=== PATIENT | male | born 1985 | race Caucasian/White ===

== ENCOUNTER 2016-08-21 16:35 | Emergency (ER) | payer MEDICAID ==
[2016-08-21 16:45] VITALS: RESP 16; O2SAT 96
--- NOTE | 2016-08-21 17:27 | EDPHY ---
H & P Time Seen by Provider: 08/21/16 17:08 HPI/ROS: CHIEF COMPLAINT: Possible abscess left biceps HISTORY OF PRESENT ILLNESS: 31-year-old immunocompetent male with up-to-date tetanus, history of IV heroin use, last used 10 days ago and missed in his left bicep. He is complaining of progressive erythema and swelling to his left biceps. he was recently started on Suboxone therapy and his physician recommended come to the ER for evaluation of this abscess. He denies: Fever, chills, chest pain, dyspnea, back pain REVIEW OF SYSTEMS: A ten point review of systems was performed and is negative with the exception of the items mentioned in the HPI PAST MEDICAL & SURGICAL HISTORY: No pertinent medical or surgical history SOCIAL HISTORY: History of IV heroin use PHYSICAL EXAM (Prior to examination, patient consented to physical exam, hands were washed and my usual and customary physical exam procedures followed) 1) GENERAL: Well-developed, well-nourished, alert and oriented. Appears nontoxic . 2) HEAD: Normocephalic, atraumatic 3) HEENT: Sclera anicteric. 4) NECK: Full range of motion, no meningeal signs. 5) LUNGS: Clear auscultation bilaterally, no wheezes, no rhonchi, no retractions. 6) HEART: Regular rate and rhythm, no murmur, no heave, no gallop. 7) ABDOMEN: No guarding, no rebound, no focal tenderness, 8) MUSCULOSKELETAL: left upper extremity: Left anterior biceps there are 2 discrete abscesses each measuring 2.5 cm in close proximity to each other. There is no crepitus. There is no lymphangitic streaking. There is no axillary adenopathy. He has full range of motion of the shoulder and elbow 9) BACK: no visual or palpable abnormality. 10) SKIN: No rash, no petechiae. 11) Psychiatric: Patient is oriented X 3, there is no agitation. DIFFERENTIAL DIAGNOSIS: in no particular order including but not limited to abscess, cellulitis, necrotizing fasciitis, DVT Smoking Status: Heavy smoker Constitutional: Initial Vital Signs Temperature (C) 36.5 C 08/21/16 16:42 Heart Rate 103 H 08/21/16 16:42 Respiratory Rate 16 08/21/16 16:42 Blood Pressure 133/85 H 08/21/16 16:42 O2 Sat (%) 96 08/21/16 16:42 O2 Delivery Mode Room Air Allergies/Adverse Reactions: No Known Allergies Allergy (Verified 01/24/16 16:45) Home Medications: Medication Instructions Recorded Cephalexin [Keflex] 500 mg PO QID 10 Days 08/21/16 Sulfamethox/Tmp 800/160 mg 1 tab PO BID@1000,2200 10 Days 08/21/16 [Bactrim Ds] MDM/Departure - MDM Procedures: Procedure: Abscess drainage. The patient's to discrete abscesses were located on the left bicep . I obtained verbal consent from the patient to drain the abscess who was informed about the possibility of bleeding and pain. The area was aspirated with an 18 gauge needle sent to laboratory for culture and sensitivity. Each abscess was incised with a scalpel and a moderate amount of purulent drainage was expressed. I irrigated the wound . The patient tolerated the procedure well. The procedure was performed by myself. ED Course/Re-evaluation: Doubt necrotizing fasciitis. Doubt cellulitis. He has 2 discrete abscesses which were incised and drained he was started on oral antibiotics. His tetanus is up-to-date. Recommend he follow up with his primary care provider in 2 days for recheck. Usual and customary wound precautions and instructions provided. - Depart Disposition: Home, Routine, Self-Care Clinical Impression: Abscess of left arm Condition: Good Instructions: Abscess (ED) Additional Instructions: Return to the ER if you develop redness, swelling, discharge, warmth to the wound, red streaks going up your arm, or any other symptoms that concern you. Prescriptions: Cephalexin [Keflex] 500 mg PO QID 10 Days Sulfamethox/Tmp 800/160 mg [Bactrim Ds] 1 tab PO BID@1000,2200 10 Days Referrals: Follow-up, with your doctor in 2 days [Other] - As per Instructions
[2016-08-21 18:03] VITALS: BP 129/84; PULSE 88; TEMP 98.6
== END 2016-08-21 18:00 | disposition home or self-care (01) ==
PROC: 0H9CXZZ Drainage of Left Upper Arm Skin, External Approach (ICD-10-PCS; principal; 2016-08-21)
DX: L02.414 Cutaneous abscess of left upper limb (principal); F17.200 Nicotine dependence, unspecified, uncomplicated

== ENCOUNTER 2017-03-22 17:10 | Emergency (ER) | payer MEDICAID ==
[2017-03-22 17:18] VITALS: RESP 18; TEMP 99
--- NOTE | 2017-03-22 17:40 | CPEKG ---
Heart Rate: 71 RR Interval: 845 P-R Interval: 152 QRSD Interval: 80 QT Interval: 392 QTC Interval: 426 P [place]: 140 QRS [place]: -22 T Wave [place]: 43 EKG Severity - OTHERWISE NORMAL ECG - EKG Impression: SINUS OR ECTOPIC ATRIAL RHYTHM EKG Impression: BORDERLINE LEFT AXIS DEVIATION Electronically Signed By: David Osborn 22-Mar-2017 17:49:10
[2017-03-22] MEDS ORDERED: NS 1,000 ML IV ONE (17:44)
[2017-03-22] MEDS ORDERED: ASPIRIN 81 MG CHEWABLE TAB PO ONE (17:44)
[2017-03-22] MEDS ORDERED: MAG HYDROX/AL HYDROX/SIMETH 30 ML UDCUP PO ONE (17:45)
[2017-03-22] MEDS ORDERED: HYOSCYAMINE SULFATE 0.125 MG TAB PO ONE (17:45)
[2017-03-22] MEDS ORDERED: LIDOCAINE 2% VISCOUS 15 ML UDCUP PO ONE (17:45)
--- NOTE | 2017-03-22 17:48 | EDPHY ---
H & P Stated Complaint: chest pain for a few days Time Seen by Provider: 03/22/17 17:37 HPI/ROS: CHIEF COMPLAINT: Chest pain HISTORY OF PRESENT ILLNESS: Patient is a 31-year-old IV drug abuser of heroin who comes to the emergency department complaining of chest pain for the last 48 hr. He also has pleuritic pain but no shortness of breath. No back pain. No diaphoresis. No nausea vomiting. No fevers. No rashes. REVIEW OF SYSTEMS: Constitutional: denies: chills, fever, recent illness, recent injury EENTM: denies: blurred vision, double vision, nose congestion Respiratory: denies: cough, shortness of breath Cardiac: See HPI Gastrointestinal/Abdominal: denies: abdominal pain, diarrhea, nausea, vomiting, blood streaked stools Genitourinary: denies: dysuria, frequency, hematuria, pain Musculoskeletal: denies: joint pain, muscle pain Skin: denies: lesions, rash, jaundice, bruising Neurological: denies: headache, numbness, paresthesia, tingling, dizziness, weakness Hematologic/Lymphatic: denies: blood clots, easy bleeding, easy bruising Immunologic/allergic: denies: HIV/AIDS, transplant EXAM: GENERAL: Well-appearing, well-nourished and in no acute distress. HEAD: Atraumatic, normocephalic. EYES: Pupils equal round and reactive to light, extraocular movements intact, sclera anicteric, conjunctiva are normal. ENT: TMs normal, nares patent, oropharynx clear without exudates. Moist mucous membranes. NECK: Normal range of motion, supple without lymphadenopathy or JVD. LUNGS: Breath sounds clear to auscultation bilaterally and equal. No wheezes rales or rhonchi. HEART: Regular rate and rhythm without murmurs, rubs or gallops. ABDOMEN: Soft, nontender, normoactive bowel sounds. No guarding, no rebound. No masses appreciated. BACK: No CVA tenderness, no spinal tenderness, step-offs or deformities EXTREMITIES: Normal range of motion, no pitting or edema. No clubbing or cyanosis. NEUROLOGICAL: Cranial nerves II through XII grossly intact. Normal speech, normal gait. 5/5 strength, normal movement in all extremities, normal sensation PSYCH: Normal mood, normal affect. SKIN: Warm, dry, normal turgor, no visible rashes or lesions. Source: Patient Exam Limitations: No limitations - Personal History Current Tetanus/Diphtheria Vaccine: Yes Current Tetanus Diphtheria and Acellular Pertussis (TDAP): Yes Tetanus Vaccine Date: < 10 years - Medical/Surgical History Hx Asthma: No Hx Chronic Respiratory Disease: No Hx Diabetes: No Hx Cardiac Disease: No Hx Renal Disease: No Hx Cirrhosis: No Hx Alcoholism: No Hx HIV/AIDS: No Hx Splenectomy or Spleen Trauma: No Other PMH: TBI 2007, broken pelvis, back 2007, seizures, - Family History Significant Family History: No pertinent family hx - Social History Smoking Status: Heavy smoker Alcohol Use: Occasionally Drug Use: Heroin Constitutional: Initial Vital Signs Temperature (C) 37.2 C 03/22/17 17:15 Heart Rate 78 03/22/17 17:15 Respiratory Rate 18 03/22/17 17:15 Blood Pressure 152/144 H 03/22/17 17:15 O2 Sat (%) 93 03/22/17 17:15 O2 Delivery Mode Room Air Allergies/Adverse Reactions: No Known Allergies Allergy (Verified 03/22/17 17:15) Home Medications: Medication Instructions Recorded Pantoprazole Sodium [Protonix] 40 mg PO DAILY #30 tab 03/22/17 Medical Decision Making - Diagnostics EKG Interpretation: An EKG obtained and was read and documented in trace view. Please see trace view for full reading and report. Sinus rhythm, no acute ischemic changes Imaging Results: Imaging Impressions Chest X-Ray 03/22/17 17:45 Impression: Normal chest x-ray. Chest/Thorax CTA 03/22/17 18:25 Impression: 1. No evidence of pulmonary embolus using CT protocol. 2. Normal CT chest. 3. 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 Findings discussed with David Osborn M.D. at 19:48 hour, 03/22/2017. Imaging: Discussed imaging studies w/ scallop cutter Radiologist ED Course/Re-evaluation: Patient does not have any murmur. He is afebrile. We discussed the lab and CT results. He is currently asymptomatic and eager to go home. I encouraged Protonix daily. He does feel much better after GI cocktail. We discussed follow-up and indications for returning. Differential Diagnosis: Partial list of the Differential diagnosis considered include but were not limited to; peptic ulcer disease, endocarditis, P and although unlikely based on the history and physical exam, I also considered acute coronary disease, dissection, aneurysm, abscess. I discussed these differential diagnoses and the plan with the patient as well as the usual and expected course. The patient understands that the diagnosis is provisional and that in medicine we are not always correct and that further workup is often warranted. Usual and customary warnings were given. All of the patient's questions were answered. The patient was instructed to return to the emergency department should the symptoms at all worsen or return, otherwise to followup with the physician as we discussed. - Data Points Laboratory Results: Laboratory Results 03/22/17 17:35 03/22/17 17:35 03/22/17 03/22/17 03/22/17 17:35 17:35 17:35 WBC 9.21 10^3/uL 10^3/uL (3.80-9.50) RBC 4.85 10^6/uL 10^6/uL (4.40-6.38) Hgb 14.3 g/dL g/dL (13.7-17.5) Hct 40.7 % % (40.0-51.0) MCV 83.9 fL fL (81.5-99.8) MCH 29.5 pg pg (27.9-34.1) MCHC 35.1 g/dL g/dL (32.4-36.7) RDW 13.3 % % (11.5-15.2) Plt Count 250 10^3/uL 10^3/uL (150-400) MPV 9.1 fL fL (8.7-11.7) Neut % (Auto) 73.5 % % (39.3-74.2) Lymph % (Auto) 18.1 % % (15.0-45.0) [place] % (Auto) 7.5 % % (4.5-13.0) Eos % (Auto) 0.3 % L % (0.6-7.6) Baso % (Auto) 0.3 % % (0.3-1.7) Nucleat RBC Rel Count 0.0 % % (0.0-0.2) Absolute Neuts (auto) 6.76 10^3/uL H 10^3/uL (1.70-6.50) Absolute Lymphs (auto) 1.67 10^3/uL 10^3/uL (1.00-3.00) Absolute Monos (auto) 0.69 10^3/uL 10^3/uL (0.30-0.80) Absolute Eos (auto) 0.03 10^3/uL 10^3/uL (0.03-0.40) Absolute Basos (auto) 0.03 10^3/uL 10^3/uL (0.02-0.10) Absolute Nucleated RBC 0.00 10^3/uL 10^3/uL (0-0.01) Immature Gran % 0.3 % % (0.0-1.1) Immature Gran # 0.03 10^3/uL 10^3/uL (0.00-0.10) D-Dimer 1.06 ug/mLFEU H ug/mLFEU (0.00-0.50) Sodium 136 mEq/L mEq/L (135-145) Potassium 4.3 mEq/L mEq/L (3.5-5.2) Chloride 99 mEq/L mEq/L (97-110) Carbon Dioxide 26 mEq/l mEq/l (22-31) Anion Gap 11 mEq/L mEq/L (8-16) BUN 10 mg/dL mg/dL (7-23) Creatinine 0.9 mg/dL mg/dL (0.7-1.3) Estimated GFR > 60 Glucose 87 mg/dL mg/dL (70-100) Calcium 9.3 mg/dL mg/dL (8.5-10.4) Total Bilirubin 1.1 mg/dL mg/dL (0.1-1.4) Conjugated Bilirubin 0.3 mg/dL mg/dL (0.0-0.5) Unconjugated Bilirubin 0.8 mg/dL mg/dL (0.0-1.1) AST 51 IU/L IU/L (17-59) ALT 83 IU/L H IU/L (21-72) Alkaline Phosphatase 85 IU/L IU/L (38-126) Troponin I < 0.012 ng/mL ng/mL (0.000-0.034) Total Protein 7.4 g/dL g/dL (6.3-8.2) Albumin 4.2 g/dL g/dL (3.5-5.0) Lipase 16 IU/L L IU/L (23-300) Medications Given: Discontinued Medications Al Hydroxide/Mg Hydroxide (Maalox Susp) 30 ml PO ONCE ONE Stop: 03/22/17 17:46 Last Admin: 03/22/17 18:09 Dose: 30 ml Aspirin (Aspirin) 324 mg PO EDNOW ONE Stop: 03/22/17 17:45 Last Admin: 03/22/17 18:09 Dose: 324 mg Hyoscyamine Sulfate (Levsin, Hyomax-Sl) 0.25 mg PO ONCE ONE Stop: 03/22/17 17:46 Last Admin: 03/22/17 18:09 Dose: 0.25 mg Sodium Chloride (Ns) 1,000 mls @ 0 mls/hr IV EDNOW ONE; Wide Open PRN Reason: Protocol Stop: 03/22/17 17:45 Last Admin: 03/22/17 18:08 Dose: 1,000 mls Lidocaine (Lidocaine 2% Viscous) 15 ml PO ONCE ONE Stop: 03/22/17 17:46 Last Admin: 03/22/17 18:09 Dose: 15 ml Departure - Departure Disposition: Home, Routine, Self-Care Clinical Impression: Chest pain Qualifiers: Chest pain type: unspecified Qualified Code(s): R07.9 - Chest pain, unspecified Condition: Fair Instructions: Pantoprazole (By mouth), Chest Pain (ED) Additional Instructions: We do have a small aneurysm of your left subclavian artery. We recommend that you follow up with your primary for repeat imaging in 6 months. Referrals: NONE *PRIMARY CARE P,. [Primary Care Provider] - As per Instructions [facility],. [Clinic] - As per Instructions Prescriptions: Pantoprazole Sodium [Protonix] 40 mg PO DAILY #30 tab
[2017-03-22 17:52] LABS: PLATELET COUNT 250 10^3/uL (150-400)
[2017-03-22] MEDS ORDERED: IOPAMIDOL (ISOVUE 370) 100 ML BTL IV ONE (18:54)
[2017-03-22 20:24] VITALS: BP 106/72; PULSE 69; O2SAT 98
== END 2017-03-22 20:24 | disposition home or self-care (01) ==
DX: R07.9 Chest pain, unspecified (principal); F17.200 Nicotine dependence, unspecified, uncomplicated; E86.9 Volume depletion, unspecified
CPT/HCPCS: Q9967

== ENCOUNTER 2017-08-20 19:36 | Emergency (ER) | payer MEDICAID ==
--- NOTE | 2017-08-20 19:54 | EDPHY ---
General Time Seen by Provider: 08/20/17 19:49 Narrative: CHIEF COMPLAINT: medical detox HISTORY OF PRESENT ILLNESS: Patient presents with complaints wanting medical detoxification for heroin abuse. He says he has been using heroin 1 to 2 times a day for many years. He is going through "a lot of things a lot of stressors in my life,"and he would like to detox. He denies any thoughts of self-harm or harm towards others. He is solely here to ask for assistance for detoxing from heroin. He says he has gone through the past and it was described as miserable. He has no chest pain or shortness of breath. He last used earlier today around 3:00 p.m.. He is requesting Librium and "some kind of meds"to help him through this. He reports that he has arranged to check into [facility] tomorrow for treatment. REVIEW OF SYSTEMS: Ten systems reviewed and are negative unless otherwise noted in the HPI PCP: [facility] SPECIALISTS: [facility] PAST MEDICAL HISTORY: Heroin abuse PAST SURGICAL HISTORY: No recent surgeries SOCIAL HISTORY: Daily tobacco, alcohol and heroin abuse. Denies any benzodiazepine use recreational or prescription FAMILY HISTORY: Noncontributory EXAMINATION General Appearance: Alert, no distress. Well-developed well-nourished. Fidgeting Head: normocephalic, atraumatic Eyes: Pupils equal and round, no conjunctival pallor or injection ENT, Mouth: Mucous membranes moist Neck: Normal inspection, supple, non-tender Respiratory: Lungs are clear to auscultation Cardiovascular: Regular rate and rhythm Neurological: GCS 15. A&O, nonfocal, normal gait. Strength is symmetric. No tremor. No pronator drift. Skin: Warm and dry, no rash. Multiple areas of superficial excoriation without any secondary infection. Extremities: Nontender, no pedal edema Psychiatric: Anxious and fidgeting. No suicidal ideation. No homicidal ideation. DIFFERENTIAL DIAGNOSES: Including but not limited to heroin abuse, polysubstance abuse MDM: 8:00 p.m. Heroin abuse wanting detox and requesting Librium and [facility] assistance. The patient says he wants to go to the [facility] tomorrow however not tonight. Vital signs are within normal limits. I do not appreciate any evidence of active illness, no dizzy complain of any. He has no thoughts of self-harm or harm towards others. He denies any benzodiazepine use recently or for recreation. 8:40 p.m. Sukumar AMBROSE has discussed the case with the the personnel [facility]. They have no record of the patient contacting them to check in tomorrow. Furthermore do not trust the patient sending him home with [facility] at this time given his polysubstance abuse. I will order 1 dose of clonidine here and requested he return here tomorrow should he wish to proceed to the [facility] for further detox. He is comfortable with this plan and we discharged home stable condition. SUPERVISION: This patient was independently evaluated without direct involvement of or examination by the attending physician. - History Smoking Status: Heavy smoker - Objective Vital Signs: Initial Vital Signs Temperature (C) 98.2 F 08/20/17 19:41 Heart Rate 98 08/20/17 19:41 Respiratory Rate 18 08/20/17 19:41 Blood Pressure 130/84 H 08/20/17 19:41 O2 Sat (%) 94 08/20/17 19:41 O2 Delivery Mode Room Air Allergies/Adverse Reactions: No Known Allergies Allergy (Verified 08/20/17 19:41) Home Medications: Medication Instructions Recorded Pantoprazole Sodium [Protonix] 40 mg PO DAILY #30 tab 03/22/17 Laboratory Results: 08/20/17 20:15 Urine Opiates Screen NON-NEGATIVE H (NEGATIVE) Urine Barbiturates NEGATIVE (NEGATIVE) Ur Phencyclidine Scrn NEGATIVE (NEGATIVE) Ur Amphetamine Screen NEGATIVE (NEGATIVE) U Benzodiazepines Scrn NEGATIVE (NEGATIVE) Urine Cocaine Screen NON-NEGATIVE H (NEGATIVE) U Marijuana (THC) Screen NON-NEGATIVE H (NEGATIVE) Departure - Departure Disposition: Home, Routine, Self-Care Clinical Impression: Heroin abuse, Polysubstance (excluding opioids) dependence Condition: Good Instructions: Clonidine (By mouth), Cocaine Abuse (ED), Narcotic Abuse (ED) Additional Instructions: 1. Report to the [facility] when you would like to proceed with detoxication 2. Return here for any further complaints Referrals: Clemencia Reed MD [Medical Doctor] - As per Instructions [facility] Detox 24 Hours [Outside] - As per Instructions
[2017-08-20 20:51] VITALS: BP 131/74
== END 2017-08-20 20:51 | disposition home or self-care (01) ==
DX: F11.10 Opioid abuse, uncomplicated (principal); F19.10 Other psychoactive substance abuse, uncomplicated; F17.200 Nicotine dependence, unspecified, uncomplicated
CPT/HCPCS: 80305

== ENCOUNTER 2017-08-23 21:25 | Emergency (ER) | payer MEDICAID ==
--- NOTE | 2017-08-23 22:02 | EDPHY ---
H & P Stated Complaint: HEROIN AND COCAINE WITHDRAWAL, /LAST USED YEST AM/HX OF SZ - Personal History Current Tetanus Diphtheria and Acellular Pertussis (TDAP): Yes Tetanus Vaccine Date: < 10 years - Medical/Surgical History Hx Asthma: No Hx Chronic Respiratory Disease: No Hx Diabetes: No Hx Cardiac Disease: No Hx Renal Disease: No Hx Cirrhosis: No Hx Alcoholism: No Hx HIV/AIDS: No Hx Splenectomy or Spleen Trauma: No Other PMH: TBI 2007, broken pelvis, back 2007, seizures, "pins in wrist", HEROIN USE, COCAINE USE - Social History Smoking Status: Heavy smoker Time Seen by Provider: 08/23/17 22:02 Constitutional: Initial Vital Signs Temperature (C) 36.6 C 08/23/17 21:31 Heart Rate 105 H 08/23/17 21:31 Respiratory Rate 16 08/23/17 21:31 Blood Pressure 125/94 H 08/23/17 21:31 O2 Sat (%) 98 08/23/17 21:31 O2 Delivery Mode Room Air Allergies/Adverse Reactions: No Known Allergies Allergy (Verified 08/20/17 19:41) Home Medications: Medication Instructions Recorded NK [No Known Home Meds] 08/23/17 Medical Decision Making ED Course/Re-evaluation: CHIEF COMPLAINT: Seeking medical withdrawal HISTORY OF PRESENT ILLNESS: The patient is a 32 y/o male with a history of seizures seeking medical withdrawal from heroin and cocaine. He has a history of seizures with withdrawal, lack of sleep, and stress. He last used yesterday morning and sought medical withdrawal yesterday. Today he presented to the [facility] and informed them he felt he may have a seizure. They administered librium but he continued to feel like he may have a seizure. He presented to the ED for help finding placement in a medical withdrawal program that could better suit his seizure history. REVIEW OF SYSTEMS: A 10 point review of systems was performed and is negative with the exception of the elements mentioned in the history of present illness. PHYSICAL EXAM: HR, BP, O2 Sat, RR. Temp noted General Appearance: Alert, well hydrated, appropriate, and non-toxic appearing. Head: Atraumatic without scalp tenderness or obvious injury Eyes: Pupils equal, round, reactive to light and accommodation, EOMI, no trauma , no injection. Ears: Clear bilaterally, no perforation, normal landmarks Nose: Atraumatic, no rhinorrhea, clear. Throat: There is no erythema or exudates, no lesions, normal tonsils, mucus membranes moist. Neck: Supple, nontender, no lymphadenopathy. Respiratory: No retractions, no distress, no wheezes, and no accessory muscle use. Cardiovascular: Regular rate and rhythm, no murmurs, rubs, or gallops. Gastrointestinal: Abdomen is soft, nontender, non-distended, no masses, no rebound, no guarding, no peritoneal signs. Musculoskeletal: Normal active ROM of all extremities, atraumatic. Neurological: Alert, appropriate, and interactive. The patient has normal DTRs and non-focal cranial nerves, motor, sensory, and cerebellar exam. Skin: No rashes, good turgor, no nodules on palpation. Past medical history: Seizures with withdrawal, stress, or lack of sleep, traumatic brain injury, broken pelvis Past surgical history: Denies Family history: Non-contributory Social history: Lives in [place], unemployed, heavy smoker DIFFERENTIAL DIAGNOSIS: The differential diagnosis for this patients condition included but was not limited to drug abuse, multidrug abuse, seizures , withdrawal seizures and marijuana use. MEDICAL DECISION MAKING: The patient presents seeking medical detox from cocaine and heroin. He last used illicit drugs yesterday morning. He feels he may have a seizure and continues to feel that way despite Librium at the [facility]. I will have urine tox screen, CBC, basic metabolic panel, salicylate, acetaminophen, and ethanol. I will begin to seek a medical withdrawal program for him. (Adrien Vaz) 7:20 a.m.- Patient has been stable throughout my shift. Case is signed out to Dr. Flynn pending evaluation. (Becka Yuen) Other Provider: This patient's care was transferred to co at 7:[address] Yuen. At 9:30 a.m. yhe patient informed the nurse that he wanted to leave. He no longer wanted to wait to see if care could be arranged for him in an inpatient program. He told the nurse that he needed to return to his apartment, clean it out, and get his security deposit back. I went to speak with him about this at 9:40 a.m., at which time he had already left the department. I did not meet with the patient. He is here voluntarily seeking help with substance abuse. To the best of my knowledge, there is no reason to hold him involuntarily. ( Lisa Flynn) - Data Points Laboratory Results: Laboratory Results 08/23/17 22:25 08/23/17 22:25 Medications Given: Discontinued Medications Sodium Chloride (Ns) 1,000 mls @ 0 mls/hr IV ONCE ONE; Wide Open PRN Reason: Protocol Stop: 08/23/17 22:23 Last Admin: 08/23/17 22:24 Dose: 1,000 mls Ibuprofen (Motrin) 400 mg PO ONCE ONE Stop: 08/24/17 07:51 Last Admin: 08/24/17 07:55 Dose: 400 mg Loperamide HCl ( Imodium) 2 mg PO EDNOW ONE Stop: 08/24/17 07:51 Last Admin: 08/24/17 07:55 Dose: 2 mg Lorazepam (Ativan Injection) 2 mg IVP EDNOW ONE Stop: 08/23/17 22:08 Last Admin: 08/23/17 22:20 Dose: 2 mg Lorazepam (Ativan) 1 mg PO EDNOW ONE Stop: 08/24/17 03:19 Last Admin: 08/24/17 03:20 Dose: 1 mg Trazodone HCl (Trazodone) 50 mg PO EDNOW ONE Stop: 08/24/17 03:25 Last Admin: 08/24/17 03:26 Dose: 50 mg Departure - Departure Disposition: Home, Routine, Self-Care Clinical Impression: Polysubstance abuse Condition: Good Instructions: Polysubstance Abuse (ED) Referrals: NONE *PRIMARY CARE P,. [Primary Care Provider] - As per Instructions Report Scribed for: Adrien Vaz Report Scribed by: Jeanie Mccracken Date of Report: 08/23/17 Time of Report: 22:37
[2017-08-23] MEDS ORDERED: LORazepam 2 MG/ML INJ IVP ONE (22:07)
[2017-08-23] MEDS ORDERED: LORazepam 2 MG/ML INJ ONE (22:08)
[2017-08-23] MEDS ORDERED: NS 1,000 ML IV ONE (22:22)
[2017-08-23 22:33] LABS: PLATELET COUNT 356 10^3/uL (150-400)
[2017-08-24] MEDS ORDERED: LORazepam 1 MG TAB ONE (03:18)
[2017-08-24] MEDS ORDERED: LORazepam 1 MG TAB PO ONE (03:18)
[2017-08-24] MEDS ORDERED: traZODone 50 MG TAB PO ONE (03:24)
[2017-08-24] MEDS ORDERED: traZODone 50 MG TAB ONE (03:25)
[2017-08-24] MEDS ORDERED: LOPERAMIDE HCL 2 MG CAP PO ONE (07:50)
[2017-08-24] MEDS ORDERED: IBUPROFEN 200 MG TAB PO ONE (07:50)
[2017-08-24 09:45] VITALS: BP 125/80
--- NOTE | 2017-08-24 15:50 | ASMTCMCOM ---
CM Note CM Note Notes: Pt presented to the ED on 08/23/17 at 2130 for heroin and cocaine withdrawal and seeking medical detox assistance. This CM was notified upon arrival to the ED that patient was in the ED voluntarily and wanted to leave this a.m. due to needing to clean out apartment (due to being evicted) and that he may call ED CM later for further assistance. This CM received a call from the patient around 1500. This CM strongly encouraged to continue to follow up w/ [facility] (pt reports he has been in contact w/ their intake dept and they have instructed him on the necessary next steps for admission), and also to follow-up with his therapist at [facility]. Pt provided the contact numbers for and also for [facility]. Pt states he will contact and . He will also reach out to his therapist for additional outpatient assistance and support with getting into a detox program ( pt had reportedly been offered an option to return to [facility] Withdrawal Mgmt Detox at time of discharge, but he declined).Pt also knows he can always present to [facility] Crisis Walk-In Center as well (pt was also expressing that he has been under a lot of stress due to his being in a coma, him losing his apt, and also being on probation). CM available for further assistance if needed. Date Signed: 08/24/2017 03:50 PM Electronically Signed By:Zena Mcadams RN
--- NOTE | 2017-08-24 17:56 | ASDISCHSUM ---
Discharge Information Plan Status:Home with No Needs Medically Cleared to Leave: Discharge Date:08/24/2017 09:46 AM CM D/C Disposition:Home, Routine, Self-Care ADT D/C Disposition:Home, Routine, Self-Care Projected Discharge Date:08/24/2017 09:46 AM Transportation at D/C:None or Unknown Discharge Delay Reason: Follow-Up Date:08/24/2017 09:46 AM Discharge Slot: Final Diagnosis: Placement Information Patient Contact Information Contact Name:RADHA Relationship:Father Address:[address] Work Phone: City:[facility] Phone: [facility]/Zip Code:[place] [address] Email: Financial Information Financial Class:Medicaid Primary Plan Desc:MEDICAID HEALTH FIRST STOCK OR DELIVERY CLERK Primary Plan Number:[id number] Secondary Plan Desc: Secondary Plan Number: Assessment Information [facility] CM Progress Note CM Note CM Note Notes: Pt presented to the ED on 08/23/17 at 2130 for heroin and cocaine withdrawal and seeking medical detox assistance. This CM was notified upon arrival to the ED that patient was in the ED voluntarily and wanted to leave this a.m. due to needing to clean out apartment (due to being evicted) and that he may call ED CM later for further assistance. This CM received a call from the patient around 1500. This CM strongly encouraged to continue to follow up w/ [facility] Carmona (pt reports he has been in contact w/ their intake dept and they have instructed him on the necessary next steps for admission), and also to follow-up with his therapist at [facility]. Pt provided the contact numbers for and also [facility]. Pt states he will contact and . He will also reach out to his therapist for additional outpatient assistance and support with getting into a detox program ( pt had reportedly been offered an option to return to [facility] Withdrawal Mgmt Detox at time of discharge, but he declined).Pt also knows he can always present to [facility] Crisis Walk-In Center as well (pt was also expressing that he has been under a lot of stress due to his being in a coma, him losing his apt, and also being on probation). CM available for further assistance if needed. Date Signed: 08/24/2017 03:50 PM Electronically Signed By:Zena Mcadams RN Intervention Information Intervention Type:Community Resources Date of Service:08/24/2017 05:55 PM Patient Type:Emergency Room Staff Member:ARNOL Mcadams, Zena Hours:0.25 Discipline:Plastic Mould Maker Severity: Comment:[facility], [facility]
== END 2017-08-24 09:46 | disposition home or self-care (01) ==
DX: F19.10 Other psychoactive substance abuse, uncomplicated (principal); E86.9 Volume depletion, unspecified; F17.200 Nicotine dependence, unspecified, uncomplicated
CPT/HCPCS: 80305; 96374; G0480; J2060

== ENCOUNTER 2017-08-25 11:56 | Emergency (ER) | payer MEDICAID, OTHER ==
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
[2017-08-25 13:36] VITALS: BP 121/69
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
--- NOTE | 2017-08-26 18:01 | ASMTCMCOM ---
CM Note CM Note Notes: Followed up with [facility] and spoke w/Daniella. Pt did make it to his appt with Fartun Dickerson this morning and they discussed his history of seizures (no anti-seizure medications were prescribed today) but mainly they addressed detox options and their Suboxone program. It seems patient has completed the Suboxone program enrollment process and is approved to start the program. Pt's appt on Friday w/Meliza Inman was canceled due to his appt today being successful in re:Suboxone program. Pt was also seen by a Behavior Health Specialist, Yogi, during his visit at today. It seems that 's plan is to further coordinate with [facility] until pt gets into [facility] an/or his 90-day treatment program in [facility] that doesn't start for several more weeks. Date Signed: 08/26/2017 06:00 PM Electronically Signed By:Zena Mcadams RN
== END 2017-08-25 14:02 | disposition home or self-care (01) ==
DX: F11.23 Opioid dependence with withdrawal (principal); F17.200 Nicotine dependence, unspecified, uncomplicated